=== PATIENT | male | born 1995 | race African-American/Black ===

== ENCOUNTER 2020-08-04 08:22 | Emergency (ER) | payer SELFPAY ==
[2020-08-04] MEDS ORDERED: Ibuprofen 200 MG TAB ONE (09:08)
[2020-08-04] MEDS ORDERED: cefTRIAXone\\ROCEPHIN 1 GM VIAL ONE (09:40)
[2020-08-04] MEDS ORDERED: Dexamethasone 10 MG/ML VIAL ONE (09:40)
[2020-08-04] MEDS ORDERED: Lidocaine 1% PF 5 ML VIAL ONE (09:40)
== END 2020-08-04 09:36 | disposition home or self-care (01) ==
LOC: ERS 08:22
DX: J02.9 Acute pharyngitis, unspecified (principal); J45.909 Unspecified asthma, uncomplicated; F17.210 Nicotine dependence, cigarettes, uncomplicated
CPT/HCPCS: 87081; 87430; 96372; 99283; J0696; J1100

== ENCOUNTER 2020-12-12 00:38 | Emergency (ER) | payer SELFPAY | END 2020-12-12 02:23 | disposition home or self-care (01) | LOC: ERS 00:38 | DX: S62.655A Nondisplaced fracture of middle phalanx of left ring finger, initial encounter for closed fracture (principal); W19.XXXA Unspecified fall, initial encounter; Y93.67 Activity, basketball; J45.909 Unspecified asthma, uncomplicated; F17.210 Nicotine dependence, cigarettes, uncomplicated ==

== ENCOUNTER 2021-01-20 12:31 | Emergency (ER) | payer SELFPAY ==
[2021-01-20 19:51] LABS: SARS-CoV-2 PCR by NAA DETECTED (NotDetected)
== END 2021-01-20 13:15 | disposition home or self-care (01) ==
LOC: ERS 12:31
DX: U07.1 COVID-19 (principal); J45.909 Unspecified asthma, uncomplicated
CPT/HCPCS: 99283; U0003; U0005